=== PATIENT | female | born 1965 | race Caucasian/White ===

== ENCOUNTER 2019-01-25 14:47 | Observation (INO) ==
[2019-01-25] MEDS ORDERED: SODIUM CHLORIDE 0.9% 1,000 ML IV STA (15:49)
[2019-01-25] MEDS ORDERED: levETIRAcetam 500 MG/5 ML VIAL IV ONE (16:02)
[2019-01-25 16:03] LABS: Basophils % 0.5 % (0.0-0.8); Eosinophils # 0.1 10*3/uL (0.0-0.87); Eosinophils % 1.6 % (0.00-10.9); Hematocrit 42.7 VOL% (35.7-47.0); Hemoglobin 13.2 GM/DL (12.0-16.0); Immature Granulocytes % 0.8 %; Immature Granulocytes Absolute 0.06 #; Lymphocytes # 3.1 10*3/uL (1.4-4.0); Lymphocytes % 39.8 % (21.3-54.2); Mean Corpuscular HGB Conc 30.9 GM/DL (32-36); Mean Corpuscular Volume 99.1 FL (87-102); Mean Platelet Volume 8.8 FL (9.6-12.0); Monocytes % 6.7 % (1.7-12.7); Neutrophils % 50.6 % (38.7-73.9); Platelet Count 235 T/CUMM (130-400); Red Blood Count 4.31 MC/CUMM (3.8-5.5); Red Cell Distribution Width 11.5 % (9.3-17.3); White Blood Count 7.9 T/CUMM (4-12)
[2019-01-25 16:11] LABS: Albumin 3.2 G/DL (3.4-5.0); Bilirubin,Total 0.4 MG/DL (0.2-1.0); Osmolality,Calculated 278.5 MOS/KG (273-304); Total Protein 6.4 G/DL (6.4-8.3)
[2019-01-25 17:34] LABS: Apearance,Urine CLOUDY (Clear); Bacteria,Urine Occasional /HPF (Few); Bilirubin,Urine Negative (Negative); Blood, Urine Negative (Negative); Glucose,Urine (UA) >=500 mg/dL (Negative); Ketones,Urine Negative (Negative); Nitrite,Urine Negative (Negative); Protein,Urine Negative; RBC,Urine <1 /HPF (0-4); Squamous Epithelial Cell,Urine Occasional /HPF (0-10); Urine Color Yellow (Yellow); Urine Specific Gravity 1.012 (1.001-1.035); Urine Urobilinogen < 2.0 EU/DL (0.2-1.0); WBC,Urine <1 /HPF (0-6)
[2019-01-25 17:49] LABS: Barbiturates Screen,Urine Negative (Negative); Benzodiazepines Screen,Urine Negative (Negative); Cannabinoid Screen,Urine Negative (Negative); Opiate Screen,Urine Positive (Negative); Phencyclidine Screen,Urine Negative (Negative)
[2019-01-25] MEDS ORDERED: GLUCAGON 1 MG VIAL IM PRN (18:50)
[2019-01-25] MEDS ORDERED: ONDANSETRON 4 MG/2 ML VIAL IV PRN (18:50)
[2019-01-25] MEDS ORDERED: ACETAMINOPHEN 325 MG TABLET PO PRN (18:50)
[2019-01-25] MEDS ORDERED: DOCUSATE SODIUM 100 MG CAPSULE PO PRN (18:50)
[2019-01-25] MEDS ORDERED: DEXTROSE 50% 25 GM/50 ML VIAL IV PRN (18:50)
[2019-01-25] MEDS ORDERED: METHOCARBAMOL 500 MG TABLET PO PRN (19:17)
[2019-01-25] MEDS: INSULIN REGULAR 100 UNIT/ML SUBCUT SCH (22:28)
[2019-01-25] MEDS: TOPIRAMATE 200 MG TABLET PO SCH (23:00)
[2019-01-25] MEDS: ENOXAPARIN 40 MG/0.4 ML SYRINGE SUBCUT SCH (23:00)
[2019-01-25] MEDS: metFORMIN 500 MG TABLET PO SCH (23:01)
[2019-01-25] MEDS: PREGABALIN 75 MG CAPSULE PO SCH (23:01)
[2019-01-26 06:02] LABS: Basophils % 0.4 % (0.0-0.8); Eosinophils # 0.2 10*3/uL (0.0-0.87); Eosinophils % 1.9 % (0.00-10.9); Immature Granulocytes % 0.4 %; Immature Granulocytes Absolute 0.03 #; Lymphocytes # 4.2 10*3/uL (1.4-4.0); Lymphocytes % 53.7 % (21.3-54.2); Mean Corpuscular HGB Conc 31.7 GM/DL (32-36); Mean Corpuscular Volume 98.8 FL (87-102); Mean Platelet Volume 9.1 FL (9.6-12.0); Monocytes % 6.3 % (1.7-12.7); Neutrophils % 37.3 % (38.7-73.9); Platelet Count 208 T/CUMM (130-400); Red Blood Count 4.15 MC/CUMM (3.8-5.5); Red Cell Distribution Width 11.6 % (9.3-17.3); White Blood Count 7.9 T/CUMM (4-12)
[2019-01-26 06:27] LABS: Band Neutrophils 2 % (0-10); Eosinophils 3 % (0-10); Lymphocytes 55 % (20-55); Platelet Estimate Normal; Segmented Neutrophils 34 % (50-85); Total Cells Counted 100
[2019-01-26 06:53] LABS: Calcium 7.7 MG/DL (8.5-10.1); Thyroid Stimulating Hormone 0.406 uIU/ml (0.358-3.74)
[2019-01-26 07:08] LABS: Folate 18.9 NG/ML (5.4-24.0)
[2019-01-26] MEDS ORDERED: POTASSIUM CHLORIDE 20 MEQ TABLET PO PRN (07:34)
[2019-01-26] MEDS: INSULIN REGULAR 100 UNIT/ML SUBCUT SCH ×4 (09:11→22:19)
[2019-01-26] MEDS: CLOPIDOGREL 75 MG TABLET PO SCH (09:18)
[2019-01-26] MEDS: metFORMIN 500 MG TABLET PO SCH ×2 (09:18→22:22)
[2019-01-26] MEDS: PREGABALIN 75 MG CAPSULE PO SCH ×2 (09:18→22:22)
[2019-01-26] MEDS: ASPIRIN EC 325 MG TABLET PO SCH (09:18)
[2019-01-26] MEDS ORDERED: LORazepam 2 MG/1 ML VIAL IV ONE (09:19)
[2019-01-26] MEDS: TOPIRAMATE 200 MG TABLET PO SCH ×2 (09:28→22:22)
[2019-01-26] MEDS: predniSONE 5 MG TABLET PO SCH (09:28)
[2019-01-26] MEDS: amLODIPine 2.5 MG TABLET PO SCH (10:35)
[2019-01-26] MEDS: ENOXAPARIN 40 MG/0.4 ML SYRINGE SUBCUT SCH (22:22)
[2019-01-27] MEDS: INSULIN REGULAR 100 UNIT/ML SUBCUT SCH ×2 (07:31→11:26)
[2019-01-27 08:00] LABS: Calcium 8.5 MG/DL (8.5-10.1); Osmolality,Calculated 284.1 MOS/KG (273-304)
[2019-01-27] MEDS: metFORMIN 500 MG TABLET PO SCH (09:30)
[2019-01-27] MEDS: ASPIRIN EC 325 MG TABLET PO SCH (09:30)
[2019-01-27] MEDS: TOPIRAMATE 200 MG TABLET PO SCH (09:30)
[2019-01-27] MEDS: PREGABALIN 75 MG CAPSULE PO SCH (09:30)
[2019-01-27] MEDS: predniSONE 5 MG TABLET PO SCH (09:30)
[2019-01-27] MEDS: CLOPIDOGREL 75 MG TABLET PO SCH (09:30)
[2019-01-27] MEDS: amLODIPine 2.5 MG TABLET PO SCH (10:27)
[2019-01-27 11:35] VITALS: BP 112/82
== END 2019-01-27 13:50 | disposition home or self-care (01) ==
LOC: N.EDINP 14:47 → N.ED 14:47 → SUATTDRO 18:50 → N.2E 19:06
PROVIDERS: ADMIT Internal Medicine Cardiovascular Disease; ATTEND Internal Medicine

== ENCOUNTER 2020-07-25 21:31 | Observation (INO) ==
[2020-07-25 22:30] LABS: Basophils % 0.6 % (0.0-0.8); Eosinophils # 0.3 10*3/uL (0.0-0.87); Eosinophils % 4.4 % (0.00-10.9); Hematocrit 44.2 VOL% (35.7-47.0); Hemoglobin 14.3 GM/DL (12.0-16.0); Immature Granulocytes % 0.6 %; Immature Granulocytes Absolute 0.04 #; Lymphocytes # 2.3 10*3/uL (1.4-4.0); Lymphocytes % 36.4 % (21.3-54.2); Mean Corpuscular HGB Conc 32.4 GM/DL (32-36); Mean Corpuscular Volume 94.8 FL (87-102); Mean Platelet Volume 8.8 FL (9.6-12.0); Monocytes % 10.2 % (1.7-12.7); Neutrophils % 47.8 % (38.7-73.9); Platelet Count 222 T/CUMM (130-400); Red Blood Count 4.66 MC/CUMM (3.8-5.5); Red Cell Distribution Width 11.7 % (9.3-17.3); White Blood Count 6.4 T/CUMM (4-12)
[2020-07-25 22:39] LABS: PT Patient Result 10.7 SECS (9.8-11.9)
[2020-07-25 22:52] LABS: Barbiturates Screen,Urine Negative (Negative); Benzodiazepines Screen,Urine Negative (Negative); Cannabinoid Screen,Urine Negative (Negative); Opiate Screen,Urine Negative (Negative); Phencyclidine Screen,Urine Negative (Negative)
[2020-07-25 22:53] LABS: Alanine Aminotransferase 27 U/L (13-56); Albumin 3.6 G/DL (3.4-5.0); Alkaline Phosphatase 80 U/L (45-117); Aspartate Amino Transferase 25 U/L (0-37); Bilirubin,Total < 0.39 MG/DL (0.2-1.0); Blood Urea Nitrogen 19 MG/DL (7-18); Calcium 9.1 MG/DL (8.5-10.1); Carbon Dioxide 21 MMOL/L (21-32); Estimated Glom Filtration Rate 113 ML/MIN; Glucose 182 MG/DL (74-106); Osmolality,Calculated 285.4 MOS/KG (273-304); Potassium 3.5 MMOL/L (3.5-5.1); Sodium 140 MMOL/L (136-145); Total Protein 7.4 G/DL (6.4-8.3)
[2020-07-25 22:55] LABS: Troponin I < 0.015 NG/ML (0.00-0.045)
[2020-07-25 23:07] LABS: Bacteria,Urine Occasional /HPF (Few); Bilirubin,Urine Negative (Negative); Blood, Urine Small mg/dL (Negative); Glucose,Urine (UA) >=500 mg/dL (Negative); Hyaline Casts,Urine 2 /LPF (0-3); Ketones,Urine 20 mg/dL (Negative); Nitrite,Urine Negative (Negative); Protein,Urine Negative; RBC,Urine <1 /HPF (0-4); Urine Appearance CLEAR (Clear); Urine Color Yellow (Yellow); Urine Specific Gravity 1.028 (1.001-1.035); Urine Urobilinogen < 2.0 EU/DL (0.2-1.0); WBC,Urine 5 /HPF (0-6)
[2020-07-26] MEDS ORDERED: guaiFENesin/DM ER 600-30 MG TABLET PO PRN (00:13)
[2020-07-26] MEDS ORDERED: ACETAMINOPHEN 325 MG TABLET PO PRN (00:13)
[2020-07-26] MEDS ORDERED: ZALEPLON 5 MG CAPSULE PO PRN (00:13)
[2020-07-26] MEDS ORDERED: DOCUSATE SODIUM 100 MG CAPSULE PO PRN (00:13)
[2020-07-26] MEDS ORDERED: diphenhydrAMINE CAP 25 MG CAPSULE PO PRN (00:13)
[2020-07-26] MEDS ORDERED: DEXTROSE 50% 25 GM/50 ML VIAL IV PRN ×2 (00:13)
[2020-07-26] MEDS ORDERED: hydrALAZINE 20 MG/1 ML VIAL IV PRN (00:13)
[2020-07-26] MEDS ORDERED: ONDANSETRON 4 MG/2 ML VIAL IV PRN (00:13)
[2020-07-26] MEDS ORDERED: GLUCAGON 1 MG VIAL IM PRN ×2 (00:13)
[2020-07-26] MEDS ORDERED: NICOTINE 21 MG/24 HR PATCH TRANSDERM PRN (00:13)
[2020-07-26] MEDS ORDERED: METHOCARBAMOL 500 MG TABLET PO PRN (00:19)
[2020-07-26] MEDS ORDERED: cefTRIAXone 1,000 MG in SYRINGE 1 EACH IV SCH (02:00)
[2020-07-26] MEDS: VANCOMYCIN INJ 1,250 MG in SODIUM CHLORIDE 0.9% 250 ML IV SCH ×2 (03:09→16:07)
[2020-07-26 05:37] LABS: Basophils % 0.7 % (0.0-0.8); Eosinophils # 0.3 10*3/uL (0.0-0.87); Eosinophils % 4.5 % (0.00-10.9); Hematocrit 43.2 VOL% (35.7-47.0); Hemoglobin 13.8 GM/DL (12.0-16.0); Immature Granulocytes % 0.5 %; Immature Granulocytes Absolute 0.03 #; Lymphocytes # 2.6 10*3/uL (1.4-4.0); Lymphocytes % 47.7 % (21.3-54.2); Mean Corpuscular HGB Conc 31.9 GM/DL (32-36); Mean Corpuscular Volume 97.1 FL (87-102); Mean Platelet Volume 8.9 FL (9.6-12.0); Monocytes % 9.8 % (1.7-12.7); Neutrophils % 36.8 % (38.7-73.9); Platelet Count 238 T/CUMM (130-400); Red Blood Count 4.45 MC/CUMM (3.8-5.5); Red Cell Distribution Width 11.8 % (9.3-17.3); White Blood Count 5.5 T/CUMM (4-12)
[2020-07-26 06:08] LABS: Albumin 3.4 G/DL (3.4-5.0); Bilirubin,Total 0.4 MG/DL (0.2-1.0); Calcium 8.7 MG/DL (8.5-10.1); Osmolality,Calculated 288.8 MOS/KG (273-304); Potassium 3.3 MMOL/L (3.5-5.1); Total Protein 7.2 G/DL (6.4-8.3)
[2020-07-26 06:12] LABS: Atypical Lymphocytes Few; Eosinophils 7 % (0-10); Lymphocytes 51 % (20-55); Platelet Estimate Adequate; Segmented Neutrophils 32 % (50-85); Total Cells Counted 100
[2020-07-26] MEDS ORDERED: MULTIVITAMIN (CENTRUM) TABLET PO SCH (09:00)
[2020-07-26] MEDS ORDERED: PANTOPRAZOLE 40 MG TABLET PO SCH (09:00)
[2020-07-26] MEDS ORDERED: predniSONE 5 MG TABLET PO SCH (09:00)
[2020-07-26] MEDS ORDERED: ENOXAPARIN 40 MG/0.4 ML SYRINGE SUBCUT SCH (09:00)
[2020-07-26] MEDS ORDERED: amLODIPine 2.5 MG TABLET PO SCH (09:00)
[2020-07-26] MEDS ORDERED: ASPIRIN EC 325 MG TABLET PO SCH (09:00)
[2020-07-26] MEDS ORDERED: CLOPIDOGREL 75 MG TABLET PO SCH (09:00)
[2020-07-26] MEDS ORDERED: ROSUVASTATIN 20 MG TABLET PO SCH (09:00)
[2020-07-26] MEDS ORDERED: TOPIRAMATE 200 MG TABLET PO SCH (09:00)
[2020-07-26] MEDS ORDERED: METOPROLOL SUCCINATE XL 50 MG TABLET PO SCH (09:00)
[2020-07-26] MEDS ORDERED: CHOLECALCIFEROL 1,000 UNIT TABLET PO SCH (09:00)
[2020-07-26] MEDS ORDERED: ESTRADIOL 2 MG TABLET PO SCH (09:00)
[2020-07-26] MEDS ORDERED: PREGABALIN 75 MG CAPSULE PO SCH (09:00)
[2020-07-26] MEDS ORDERED: glyBURIDE 2.5 MG TABLET PO SCH (09:00)
[2020-07-26] MEDS ORDERED: POTASSIUM CHLORIDE 20 MEQ TABLET PO PRN (09:15)
[2020-07-26] MEDS: INSULIN LISPRO 100 UNIT/ML SUBCUT SCH ×2 (09:50→12:59)
[2020-07-26 11:59] VITALS: BP 139/81
== END 2020-07-26 16:02 | disposition home or self-care (01) ==
LOC: EDBD → EDUNIT# → N.TELEN 21:31 → N.ED 21:31 → SUATTDRO 07-26 00:13 → N.TELEN 07-26 02:06
PROVIDERS: ADMIT Emergency Medicine; ATTEND Internal Medicine